=== PATIENT | female | born 1995 | race Caucasian/White ===

== ENCOUNTER 2016-09-24 16:04 | Inpatient (IN) | payer MEDICAID, OTHER ==
[2016-09-24 16:09] VITALS: BMI 25.4
--- NOTE | 2016-09-24 16:24 | ED PDOC ---
Arrival/HPI - General Chief Complaint: Psychiatric Evaluation Time Seen by Provider: 09/24/16 16:06 Historian: Patient, Other ([place] documentation) - History of Present Illness Narrative History of Present Illness (Text): 09/24/16 16:21 21yr old female with depression, presents with suicide attempt. pt transfer from [facility] for admission. denies any complaints at present time. Past Medical History - Provider Review Nursing Documentation Reviewed: Yes - Travel History Have you recently traveled outside [place] w/in the past 3 mons?: No - Cardiac Hx Cardiac Disorders: No - Pulmonary Hx Respiratory Disorders: No - Neurological Hx Neurological Disorder: No - HEENT Hx HEENT Disorder: No - Renal Hx Renal Disorder: No - Endocrine/Metabolic Hx Endocrine Disorders: No - Hematological/Oncological Hx Blood Disorders: No - Integumentary Hx Dermatological Disorder: No - Musculoskeletal/Rheumatological Hx Musculoskeletal Disorders: No - Gastrointestinal Hx Gastrointestinal Disorders: No - Genitourinary/Gynecological Hx Genitourinary Disorders: No - Psychiatric Hx Depression: Yes Hx Substance Use: No - Anesthesia Hx Anesthesia: No Family/Social History - Physician Review Nursing Documentation Reviewed: Yes Family/Social History: Unknown Family HX Smoking Status: Unknown If Ever Smoked Hx Alcohol Use: No Hx Substance Use: No Allergies/Home Meds Allergies/Adverse Reactions: Allergies No Known Allergies Allergy (Unverified 09/24/16 16:08) Home Medications: Home Meds Medication Instructions Recorded Confirmed No Known Home Med 09/24/16 09/24/16 Review of Systems - Review of Systems Constitutional: absent: Fatigue Respiratory: absent: SOB, Cough Cardiovascular: absent: Chest Pain, Palpitations Gastrointestinal: absent: Abdominal Pain, Diarrhea, Nausea, Vomiting Skin: absent: Rash, Pruritis Psychiatric: absent: Anxiety, Depression Physical Exam Vital Signs Reviewed: Yes Vital Signs Temp Pulse Resp BP Pulse Ox 09/24/16 16:08 98.2 F 84 16 130/77 100 Temperature: Afebrile Blood Pressure: Normal Pulse: Regular Respiratory Rate: Normal Appearance: Positive for: Well-Appearing, Non-Toxic, Comfortable Pain Distress: None Mental Status: Positive for: Alert and Oriented X 3 - Systems Exam Head: Present: Atraumatic Respiratory/Chest: Present: Clear to Auscultation Cardiovascular: Present: Regular Rate and Rhythm Abdomen: No: Tenderness, Distention, Rebound, Guarding Neurological: Present: GCS=15, Speech Normal Skin: Present: Warm, Dry, Normal Color. No: Rashes Psychiatric: Present: Alert Medical Decision Making ED Course and Treatment: 09/24/16 16:23 21yr old female presents for direct admission to Psych floor accepting physician; dr. mcqueen impression; depression admit to behavioral health floor. - Lab Interpretations I have reviewed the lab results: Yes Disposition/Present on Arrival - Present on Arrival Any Indicators Present on Arrival: No History of DVT/PE: No History of Uncontrolled Diabetes: No Urinary Catheter: No History of Decub. Ulcer: No History Surgical Site Infection Following: None - Disposition Have Diagnosis and Disposition been Completed?: Yes Diagnosis: Depression Disposition: HOSPITALIZED Disposition Time: 16:15 Patient Plan: Admission Condition: FAIR Referrals: PCP,NO [Primary Care Provider] - Follow up with primary
[2016-09-24] MEDS ORDERED: Magnesium Hydroxide Susp 30 ml UD PO PRN (17:30)
[2016-09-24] MEDS ORDERED: Alum-Mag Hydrox-Simethicone Susp (30 mL) PO PRN (17:30)
[2016-09-25 07:49] LABS: CHOLESTEROL 197 mg/dL (130-200); GLUCOSE,FASTING 88 mg/dL (65-110)
[2016-09-25 08:05] LABS: FREE T4 0.95 ng/dL (0.78-2.19)
[2016-09-25 08:19] LABS: THYROID STIMULATING HORMONE 2.17 mIU/mL (0.46-4.68)
--- NOTE | 2016-09-25 09:35 | PCM.PSYCH ---
Initial Psychiatric Evaluation - Initial Psychiatric Evaluation Type of Admission: Voluntary Legal Status: Capacity History of Present Illness and Precipitating Events: Patient is a single 21 year old domiciled Romansh-speaking female with history of depression, no prior psychiatric admissions, at least 2 prior suicide attempts, no current outpatient psychiatric management or medications who was transferred from [facility] after presenting there with her boyfriend s/p impulsive suicide attempt via OD of 20 Tylenol tablets. I reviewed [facility] records and met with patient in the day room. Utilized transfer car operator drier for the purpose of optimal communication during my assessment. Patient readily admits that she overdose on Tylenol tablets as a suicide attempt. Indicated her major stressor was learning that her mother was dating someone she didn't like. Patient denied any other stressors however review of records indicate that patient also got into a verbal altercation with her boyfriend immediately prior to the attempt. Apparently she asked her boyfriend for some Tylenol to help with a headache and then she impulsively ingested the bottle of pills in front of him before he could stop her. [facility] record indicate that boyfriend felt patient was trying to harm herself. And patient herself was not able to deny having suicidal thoughts when she was initially interviewed in their ER. Presently, patient is calm and cooperative and well-oriented to month, year, location and circumstances. She reports feeling depressed since her mother left [place] approximately a year and a half ago to return to [place]. Depression has been worsening and patient did not seek out any mental health treatment during this time. Patient endorses low mood and poor sleep. She denies anhedonia , crying spells, appetite changes or issues with motivation or focus. She indicates that overdose was impulsive and denies any further hopelessness or suicidal thoughts. Her affect is constricted and her thought process is coherent. Of note, patient was not immediately forthcoming about her prior suicide attempts until she was reminded by staff member who interviewed her the day prior. For this reason this provider feels that patient may be currently minimizing her symptoms. PSYCHIATRIC HISTORY Patient denies any prior inpatient psychiatric hospitalizations. Patient reports to prior suicide attempts. #1 occurred at age 16, patient jumped off the second story floor window after she learning about her parent's separation. Patient saw psychiatrist after this incident and was temporarily prescribed an anti-depressant. Patient eventually stop taking the anti- depressant and was only treated with a sleep aid. Patient cannot recall the names of her medications Patient [place] the [place] approximately two years ago. She has not been in any mental health treatment or prescribed any medications during this time. #2 Patient overdosed on medication approximately two months ago but did not tell anyone. SOCIAL HISTORY Born and raised in [place]. Patient came to the [facility] with her mother x2 years ago. Her mother returned to [place] three months later. Patient is single and she has no children. She resides with her uncle. Patient attends [place] language classes on the weekends. Patient used to work at a [employer] however she recently left this job. She denies any drug, alcohol or tobacco use. Current Medications: Active Medications Generic Name Dose Route Start Last Admin Trade Name Freq PRN Reason Stop Dose Admin Acetaminophen 650 mg 09/24/16 17:26 Tylenol 325mg Tab PO Q6H PRN Pain, moderate (4-7) Al Hydrox/Mg Hydrox/Simethicone 30 ml 09/24/16 17:30 Maalox Plus 30 Ml PO DAILY PRN Indigestion / Heartburn Lorazepam 0.5 mg 09/24/16 17:29 Ativan PO BID PRN Anxiety Protocol Magnesium Hydroxide 30 ml 09/24/16 17:30 Milk Of Magnesia PO DAILY PRN Constipation Sertraline HCl 25 mg 09/25/16 08:00 Zoloft PO DAILY LORENA Trazodone HCl 25 mg 09/24/16 17:28 Desyrel PO HS PRN Insomnia Past Psychiatric History - Past Psychiatric History Pertinent Medical Hx (Current Medical&Sleep Prob, Allergies): Allergies Allergy/AdvReac Type Severity Reaction Status Date / Time No Known Allergies Allergy Verified 09/24/16 17:35 No Known Home Med 09/24/16 DSM 5 DX - DSM 5 DSM 5 Diagnosis: 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 Anxiety disorder NOS Adjustment disorder with depression and anxiety Rule out contribution of cluster B traits - Recommended/Plan of Treatment Treatment Recommendations and Plan of Treatment: * grp, milieu and supportive tx * zoloft 25 mg po daily for depression * trazodone 25 mg po HS for depression and off-label for insomnia * ativan 0.5 mg po bid prn for anxiety * Awaiting medical f/u * Vitals reviewed and noted below: Selected Entries 09/24/16 09/25/16 16:08 06:52 Temperature 98.2 F 97.4 F L Pulse Rate 84 61 Respiratory 16 20 Rate Blood Pressure 130/77 99/58 L [facility] Labs noted below September 24, 2016 Urine HCG negative CBC within normal limits Ua within normal limits Urine drug screen: all negative Chemistry 14: all within normal limits Salicylate levels < 2.5 and Tylenol levels < 10 [facility] Labs noted below 09/25/16 09/25/16 07:15 07:15 Fasting Glucose 88 Triglycerides 152 Cholesterol 197 LDL Cholesterol Direct 120 HDL Cholesterol 50 Free T4 0.95 TSH 3rd Generation 2.17 - Smoking Cessation Smoking Cessation Initiated: No
--- NOTE | 2016-09-25 12:13 | CP.PCM.CON ---
<Heidi العراقي - Last Filed: 09/25/16 15:29> History of Present Illness - History of Present Illness History of Present Illness: 21 year old female with past medical history of depression is admitted to inpatient behavioral unit after attempted OD on Tylenol. Patient was transferred from [facility] yesterday. She was taken to that hospital after she ingested 20 tablets of Tylenol. Information is obtained by the documents from the other hospital. Patient was medically stable for transfer. Patient states that she had argument with her mother which really upset her. This is why she took the Tylenol. This has happened once before about 5 years ago. At that time, she sought outpatient behavioral health help. Patient denies having any CP, abd pain, N/v/d/C, urinary symptoms, extremity pain. PMHx: stated above Sx: appendectomy NKDA Social: denies tobacco, drug or ETOH use No home medications Past Patient History - Past Social History Smoking Status: Unknown If Ever Smoked Chewing Tobacco Use: No Cigar Use: No Alcohol: None Drugs: Denies - CARDIAC Hx Cardiac Disorders: No Hx Angina: No Hx Atrial Fibrillation: No Hx Cardia Arrhythmia: No Hx Circulatory Problems: No Hx Congestive Heart Failure: No Hx Heart Attack: No Hx Heart Murmur: No Hx Heart Transplant: No Hx Hypercholesterolemia: No Hx Hypertension: No Hx Hypotension: No Hx Internal Defibrillator: No Hx Mitral Valve Prolapse: No Hx Pacemaker: No Hx Peripheral Edema: No Hx Peripheral Vascular Disease: No - PULMONARY Hx Respiratory Disorders: No Hx Asthma: No Hx Bronchitis: No Hx Chronic Obstructive Pulmonary Disease (COPD): No Hx Emphysema: No Hx Lung Cancer: No Hx Pneumonia: No Hx Pulmonary Edema: No Hx Pulmonary Embolism: No Hx Respiratory Aspiration: No Hx Respiratory Tract Infection: No Hx Sleep Apnea: No Hx Tuberculosis: No - NEUROLOGICAL Hx Neurological Disorder: No Hx Alzheimer's Disease: No HX Cerebrovascular Accident: No Hx Dementia: No Hx Dizziness: No Hx Meningitis: No Hx Migraine: No Hx Multiple Sclerosis: No Hx Paralysis: No Hx Parkinson's Disease: No Hx Seizures: No Hx Syncope: No Hx Transient Ischemic Attacks (TIA): No Hx Vertigo: No - HEENT Hx HEENT Problems: No Hx Cataracts: No Hx Deafness: No Hx Difficulty Chewing: No Hx Epistaxis: No Hx Glaucoma: No Hx Macular Degeneration: No Hx Sinusitis: No - RENAL Hx Chronic Kidney Disease: No Hx Dialysis: No Hx Kidney Stones: No Hx Neurogenic Bladder: No Hx Pyelonephritis: No Hx Renal (Kidney) Cancer: No Hx Renal Failure: No - ENDOCRINE/METABOLIC Hx Endocrine Disorders: No Hx Adrenal Cancer: No Hx Diabetes Insipidus: No Hx Diabetes Mellitus Type 1: No Hx Diabetes Mellitus Type 2: No Hx Hyperthyroidism: No Hx Hypothyroidism: No Hx Systemic Lupus Erythematosus: No - HEMATOLOGICAL/ONCOLOGICAL Hx Blood Disorders: No Hx AIDS: No Hx Anemia: No Hx Blood Transfusions: No Hx Blood Transfusion Reaction: No Hx Bruising: No Hx Cancer: No Hx Chemotherapy: No Hx Cirrhosis: No Hx Gum Bleeding: No Hx Hemophilia: No Hx Hepatitis A: No Hx Hepatitis B: No Hx Hepatitis C: No Hx Human Immunodeficiency Virus (HIV): No Hx Leukemia: No Hx Metastesis: No Hx Shingles: No Hx Sickle Cell Disease: No Hx Unexplained Bleeding: No Hx von Willebrand's Disease: No - INTEGUMENTARY Hx Dermatological Problems: No Hx Basil Cell: No Hx Pelaez: No Hx Cellulitis: No Hx Eczema: No Hx Melanoma: No Hx Psoriasis: No Hx Squamous Cell: No - MUSCULOSKELETAL/RHEUMATOLOGICAL Hx Musculoskeletal Disorders: No Hx Arthritis: No Hx Back Pain: No Hx Degenerative Joint Disease: No Hx Falls: No Hx Fractures: No Hx Gout: No Hx Herniated Disk: No Hx Myasthenia Gravis: No Hx Osteoarthritis: No Hx Osteomyelitis: No Hx Osteoporosis: No Hx Rhabdomyolysis: No Hx Rheumatoid Arthritis: No Hx Spinal Stenosis: No Hx Unsteady Gait: No - GASTROINTESTINAL Hx Gastrointestinal Disorders: No Hx Bowel Surgery: No Hx Clostridium Difficile: No Hx Colitis: No Hx Colostomy: No Hx Constipation: No Hx Crohn's Disease: No Hx Diarrhea: No Hx Diverticulitis: No Hx Esophageal Varices: No Hx Fatty Liver Disease: No Hx Gall Bladder Disease: No Hx Gastritis: No Hx Gastroesophageal Reflux: No Hx Hemorrhoids: No Hx Ileostomy: No Hx Irritable Bowel: No Hx Liver Failure: No Hx Nausea: No Hx Pancreatitis: No HX Swallowing Problems: No Hx Ulcer: No Hx Vomiting: No - GENITOURINARY/GYNECOLOGICAL Hx Genitourinary Disorders: No Hx Bladder Cancer: No Hx Bladder Stone: No Hx Cervical Cancer: No Hx Hematuria: No Hx Incontinence: No Hx Ovarian Cancer: No Hx Postmenopausal Bleeding: No Hx Reproductive Disorders: No Hx Sexually Transmitted Disorders: No Hx Uterine Cancer: No Hx Urinary Tract Infection: No - PSYCHIATRIC Hx Psychophysiologic Disorder: No Hx Anxiety: Yes Hx Bipolar Disorder: No Hx Depression: Yes Hx Emotional Abuse: No Hx Physical Abuse: No Hx Schizophrenia: No Hx Sexual Abuse: No Hx Substance Use: No - SURGICAL HISTORY Hx Surgeries: Yes Hx Abdominal Aortic Aneurysm Repair: No Hx Amputation: No Hx Angiogram: No Hx Angioplasty: No Hx Appendectomy: Yes (5 years ago.) Hx Arteriovenous Shunt: No Hx Arthroscopy: No Hx Bile Duct Stent: No Hx Breast Biopsy: No Hx Cataract Extraction: No Hx Cardiac Catheterization: No Hx Carotid Endarterectomy: No Hx Section: No Hx Cholecystectomy: No Hx Coronary Artery Bypass Graft: No Hx Coronary Stent: No Hx Dilation and Curettage: No Hx Eye Surgery: No Hx Femoral-Popliteal Bypass Graft: No Hx Gastric Bypass Surgery: No Hx Herniorrhaphy: No Hx Hysterectomy: No Hx Joint Replacement: No Hx Kidney Transplant: No Hx Liver Transplant: No Hx Mastectomy: No Hx Musculoskeletal Surgery: No Hx Open Heart Surgery: No Hx Open Reduction Internal Fixation: No Hx Orthopedic Surgery: No Hx Parathyroidectomy: No Hx Penile Implant: No Hx Pulmonary Surgery: No Hx Splenectomy: No Hx Thyroidectomy: No Hx Tonsillectomy: No Hx Tubal Ligation: No Hx Valve Replacement: No Hx Vascular Surgery: No Hx Vascular Access Device: No - ANESTHESIA Hx Anesthesia: Yes Hx Anesthesia Reactions: No Hx Malignant Hyperthermia: No Has any member of the family had a problem w/ anesthesia?: No Meds Allergies/Adverse Reactions: Allergies Allergy/AdvReac Type Severity Reaction Status Date / Time No Known Allergies Allergy Verified 09/24/16 17:35 - Medications Medications: Current Medications Acetaminophen (Tylenol 325mg Tab) 650 mg PO Q6H PRN PRN Reason: Pain, moderate (4-7) Al Hydrox/Mg Hydrox/Simethicone (Maalox Plus 30 Ml) 30 ml PO DAILY PRN PRN Reason: Indigestion / Heartburn Lorazepam (Ativan) 0.5 mg PO BID PRN; Protocol PRN Reason: Anxiety Magnesium Hydroxide (Milk Of Magnesia) 30 ml PO DAILY PRN PRN Reason: Constipation Sertraline HCl (Zoloft) 25 mg PO DAILY LORENA Last Admin: 09/25/16 08:53 Dose: 25 mg Trazodone HCl (Desyrel) 25 mg PO HS PRN PRN Reason: Insomnia Physical Exam - Constitutional Appears: Non-toxic, No Acute Distress - Head Exam Head Exam: ATRAUMATIC - Eye Exam Eye Exam: EOMI - ENT Exam ENT Exam: Mucous Membranes Moist - Respiratory Exam Respiratory Exam: Clear to Auscultation Bilateral, NORMAL BREATHING PATTERN. absent: Accessory Muscle Use, Rales, Rhonchi, Wheezes, Respiratory Distress - Cardiovascular Exam Cardiovascular Exam: REGULAR RHYTHM, +S1, +S2. absent: Diastolic murmur, Gallop , Rubs, Systolic Murmur - GI/Abdominal Exam GI & Abdominal Exam: Normal Bowel Sounds, Soft. absent: Distended, Firm, Guarding, Rigid, Tenderness - Extremities Exam Extremities exam: Negative for: pedal edema, tenderness - Neurological Exam Neurological exam: Alert, Oriented x3 - Psychiatric Exam Psychiatric exam: Normal Affect, Normal Mood - Skin Skin Exam: Dry, Intact, Normal Color, Warm Results - Vital Signs Recent Vital Signs: Last Vital Signs Temp 97.4 F L 09/25/16 06:52 Pulse 61 09/25/16 06:52 Resp 20 09/25/16 06:52 BP 99/58 L 09/25/16 06:52 Pulse Ox 100 09/24/16 16:08 - Labs Result Diagrams: 09/25/16 13:20 09/25/16 13:20 Labs: Laboratory Results - last 24 hr 09/25/16 09/25/16 07:15 07:15 Fasting Glucose 88 Triglycerides 152 Cholesterol 197 LDL Cholesterol Direct 120 HDL Cholesterol 50 Free T4 0.95 TSH 3rd Generation 2.17 Assessment & Plan - Assessment and Plan (Free Text) Assessment: 21 year old female with past medical history of depression is admitted to inpatient behavioral unit for attempted suicide with ingestion of Tylenol. Tylenol overdose - Will check CBC, CMP, and tylenol level - will d/c tylenol Depression - Continue management per psych recommendations Will sign off. Please reconsult if necessary. Case is discussed with attending, Dr. Reyna - Date & Time Date: 09/25/16 Time: 12:14 <Kamila Reyna - Last Filed: 09/25/16 15:35> Meds - Medications Medications: Current Medications Al Hydrox/Mg Hydrox/Simethicone (Maalox Plus 30 Ml) 30 ml PO DAILY PRN PRN Reason: Indigestion / Heartburn Lorazepam (Ativan) 0.5 mg PO BID PRN; Protocol PRN Reason: Anxiety Magnesium Hydroxide (Milk Of Magnesia) 30 ml PO DAILY PRN PRN Reason: Constipation Sertraline HCl (Zoloft) 25 mg PO DAILY LORENA Last Admin: 09/25/16 08:53 Dose: 25 mg Trazodone HCl (Desyrel) 25 mg PO HS PRN PRN Reason: Insomnia Results - Vital Signs Recent Vital Signs: Last Vital Signs Temp 97.4 F L 09/25/16 06:52 Pulse 61 09/25/16 06:52 Resp 20 09/25/16 06:52 BP 99/58 L 09/25/16 06:52 Pulse Ox 100 09/24/16 16:08 - Labs Result Diagrams: 09/25/16 13:20 09/25/16 13:20 Labs: Laboratory Results - last 24 hr 09/25/16 09/25/16 09/25/16 07:15 07:15 13:20 WBC 8.3 RBC 4.20 Hgb 12.8 Hct 37.7 MCV 89.8 MCH 30.5 MCHC 34.0 RDW 13.6 Plt Count 326 MPV 10.0 Sodium Potassium Chloride Carbon Dioxide Anion Gap BUN Creatinine Est GFR ( Amer) Est GFR (Non-Af Amer) Random Glucose Fasting Glucose 88 Calcium Total Bilirubin AST ALT Alkaline Phosphatase Total Protein Albumin Globulin Albumin/Globulin Ratio Triglycerides 152 Cholesterol 197 LDL Cholesterol Direct 120 HDL Cholesterol 50 Free T4 0.95 TSH 3rd Generation 2.17 Acetaminophen 09/25/16 09/25/16 13:20 13:20 WBC RBC Hgb Hct MCV MCH MCHC RDW Plt Count MPV Sodium 141 Potassium 3.9 Chloride 108 H Carbon Dioxide 23 Anion Gap 14 BUN 14 Creatinine 0.6 Est GFR ( Amer) > 60 Est GFR (Non-Af Amer) > 60 Random Glucose 89 Fasting Glucose Calcium 9.7 Total Bilirubin 0.4 AST 26 ALT 23 Alkaline Phosphatase 75 Total Protein 8.0 Albumin 4.5 Globulin 3.5 Albumin/Globulin Ratio 1.3 Triglycerides Cholesterol LDL Cholesterol Direct HDL Cholesterol Free T4 TSH 3rd Generation Acetaminophen < 10.0 L Attending/Attestation - Attestation I have personally seen and examined this patient.: Yes I have fully participated in the care of the patient.: Yes I have reviewed all pertinent clinical information: Yes Notes (Text): 09/25/16 15:32 attending note; Patient seen and examined with resident in psychiatric floor. Translation by Canadian-speaking nurse taking care of the patient. Patient is a 21-year-old transferred from [facility] after ingesting Tylenol for suicidal attempt. Patient was seen in the ER. ER note reviewed. Poison control informed. Patient was medically cleared and sent to [place] psychiatric floor. Patient is clinically stable. Denies any abdominal pain, nausea, vomiting. tolerating diet well. Tylenol level was less than 10. LFTs normal. avoid Tylenol. no significant past medical history. Denied alcohol, drug abuse. Denied smoking history. Patient is medically stable. Please reconsult as needed. advised to follow-up with PMD upon discharge. Patient needs close psychiatric follow-up as outpatient.
[2016-09-25 13:26] LABS: HEMATOCRIT 37.7 % (36.0-48.0); MEAN CELL VOLUME 89.8 fL (80.0-105.0); MEAN CORPUSCULAR HEMOGLOBIN 30.5 pg (25.0-35.0); RED CELL DISTRIBUTION WIDTH 13.6 % (11.5-14.5); WHITE BLOOD COUNT 8.3 10^3/ul (4.5-11.0)
[2016-09-25 13:57] LABS: ALB/GLOB RATIO 1.3 (1.1-1.8); ALKALINE PHOSPHATASE 75 U/L (38-133); ALT/SGPT 23 U/L (7-56); AST/SGOT 26 U/L (15-39); BILIRUBIN,TOTAL 0.4 mg/dL (0.2-1.3); BLOOD UREA NITROGEN 14 mg/dL (7-21); CALCIUM 9.7 mg/dL (8.4-10.5); CARBON DIOXIDE 23 mmol/L (21-33); CHLORIDE 108 mmol/L (98-107); GFR AFRICAN-AMERICAN > 60; GLUCOSE,RANDOM 89 mg/dL (70-110); POTASSIUM 3.9 mmol/L (3.6-5.0); SODIUM 141 mmol/L (132-148)
--- NOTE | 2016-09-26 08:50 | PCM.PYCHPN ---
Psychiatric Progress Note - Psychiatric Progress Note Patient seen today, length of contact: 25 min Patient Chief Complaint: "better" Problems Identified/Issues Discussed: Patient is a single 21 year old domiciled Divehi-speaking female with history of depression, no prior psychiatric admissions, at least 2 prior suicide attempts, no current outpatient psychiatric management or medications who was transferred from [facility] after presenting there with her boyfriend s/p impulsive suicide attempt via OD of 20 Tylenol tablets. I reviewed [place] records and met with patient in the day room. Utilized blind aide for the purpose of optimal communication during my assessment. Patient readily admits that she overdose on Tylenol tablets as a suicide attempt. Indicated her major stressor was learning that her mother was dating someone she didn't like. Patient denied any other stressors however review of records indicate that patient also got into a verbal altercation with her boyfriend immediately prior to the attempt. Apparently she asked her boyfriend for some Tylenol to help with a headache and then she impulsively ingested the bottle of pills in front of him before he could stop her. [place] record indicate that boyfriend felt patient was trying to harm herself. And patient herself was not able to deny having suicidal thoughts when she was initially interviewed in their ER. Presently, patient is calm and cooperative and well-oriented to month, year, location and circumstances. She reports feeling depressed since her mother left [place] approximately a year and a half ago to return to [place]. Depression has been worsening and patient did not seek out any mental health treatment during this time. Patient endorses low mood and poor sleep. She denies anhedonia , crying spells, appetite changes or issues with motivation or focus. She indicates that overdose was impulsive and denies any further hopelessness or suicidal thoughts. Her affect is constricted and her thought process is coherent. Of note, patient was not immediately forthcoming about her prior suicide attempts until she was reminded by staff member who interviewed her the day prior. For this reason this provider feels that patient may be currently minimizing her symptoms. PSYCHIATRIC HISTORY Patient denies any prior inpatient psychiatric hospitalizations. Patient reports to prior suicide attempts. #1 occurred at age 16, patient jumped off the second story floor window after she learning about her parent's separation. Patient saw psychiatrist after this incident and was temporarily prescribed an anti-depressant. Patient eventually stop taking the anti- depressant and was only treated with a sleep aid. Patient cannot recall the names of her medications Patient [place] to the [place] approximately two years ago. She has not been in any mental health treatment or prescribed any medications during this time. #2 Patient overdosed on medication approximately two months ago but did not tell anyone. SOCIAL HISTORY Born and raised in [place]. Patient came to the [facility] with her mother x2 years ago. Her mother returned to [place] three months later. Patient is single and she has no children. She resides with her uncle. Patient attends Icelandic language classes on the weekends. Patient used to work at a [employer] however she recently left this job. She denies any drug, alcohol or tobacco use. ~~~~~~~~~~~~~~~~~~~~~~~~~~~~~~ I reviewed recent notes and met with patient bedside. Grooming is intact and she remains alert and oriented to location, circumstances, month and year. She is superficially cooperative and and pleasant during questioning. Affect remains constricted. Patient reports she is feeling better and continues to deny having any hopelessness, wishes are suicidal thoughts. Responses are relevant to questioning and overall her thought process has been coherent. There have been no indications of any disturbance in an organization in this respect. Delusions were not elicited. Thus far patient denies any side effects, discomfort or pain. There were no behavioral issues overnight and she continues to refuse to retract her 48 hour notice. Diagnostic Results: 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 Anxiety disorder NOS Adjustment disorder with depression and anxiety Rule out contribution of cluster B traits Medication Change: No Medical Record Reviewed: Yes (reports, labs, vitals, notes) Mental Status Examination - Cognitive Function Orientation: Person, Place, Situation Attention: WNL Concentration: WNL Association: Loose - Mood Mood: Depressed (better) - Affect Affect: Constricted - Speech Speech: Appropriate - Formal Thought Process Formal Thought Process: No Impairment - Suicidal Ideation Suicidal Ideation: No - Homicidal Ideation Homicidal Ideation: No Goal/Treatment Plan - Goal/Treatment Plan Progress Toward Problem(s) and Goals/Treatment Plan: * grp, milieu and supportive tx * Appreciate f/u by Dr. Reyna on 09/25/16~checking CBC, CMP, and tylenol level and signing off * zoloft 25 mg po daily for depression * trazodone 25 mg po HS for depression and off-label for insomnia * ativan 0.5 mg po bid prn for anxiety * Vitals reviewed and noted below: Selected Entries 09/26/16 08:08 Temperature 98.0 F Pulse Rate 62 Respiratory 20 Rate Blood Pressure 118/73 * Patient put in a 48 hour notice on 09/25/16 with insufficient time for treatment or observation on the unit. Will call for [facility] screen[facility]. [facility] Labs noted below September 24, 2016 Urine HCG negative CBC within normal limits Ua within normal limits Urine drug screen: all negative Chemistry 14: all within normal limits Salicylate levels < 2.5 and Tylenol levels < 10 [facility] Labs noted below 09/25/16 09/25/16 07:15 07:15 Fasting Glucose 88 Triglycerides 152 Cholesterol 197 LDL Cholesterol Direct 120 HDL Cholesterol 50 Free T4 0.95 TSH 3rd Generation 2.17 09/25/16 09/25/16 09/25/16 07:15 13:20 13:20 WBC 8.3 RBC 4.20 Hgb 12.8 Hct 37.7 MCV 89.8 MCH 30.5 MCHC 34.0 RDW 13.6 Plt Count 326 MPV 10.0 Sodium 141 Potassium 3.9 Chloride 108 H Carbon Dioxide 23 Anion Gap 14 BUN 14 Creatinine 0.6 Est GFR (Non-Af Amer) > 60 Random Glucose 89 Calcium 9.7 Total Bilirubin 0.4 AST 26 ALT 23 Alkaline Phosphatase 75 Total Protein 8.0 Albumin 4.5 Globulin 3.5 Albumin/Globulin Ratio 1.3 Acetaminophen RPR Nonreactive 09/25/16 13:20 WBC RBC Hgb Hct MCV MCH MCHC RDW Plt Count MPV Sodium Potassium Chloride Carbon Dioxide Anion Gap BUN Creatinine Est GFR (Non-Af Amer) Random Glucose Calcium Total Bilirubin AST ALT Alkaline Phosphatase Total Protein Albumin Globulin Albumin/Globulin Ratio Acetaminophen < 10.0 L RPR
[2016-09-27 03:45] VITALS: O2SAT 99
--- NOTE | 2016-09-27 15:41 | PCM.PYCHPN ---
Psychiatric Progress Note - Psychiatric Progress Note Patient seen today, length of contact: 30min Patient Chief Complaint: "I want to go home..." Problems Identified/Issues Discussed: Suicide/ homicide prevention, past psychiatric h/o, current psychiatric symptoms , medical problems, risk/benefits and alternatives of medications, medications compliance, coping strategies, substance abuse h/o, relapse prevention, importance of follow up with psychiatrist and therapist, discharge plan. Medical Problems: Hepatitis Diagnostic Results: 09/25/16 13:20 09/25/16 13:20 Lab Results 09/25/16 13:20: Acetaminophen < 10.0 L 09/25/16 13:20: Sodium 141, Potassium 3.9, Chloride 108 H, Carbon Dioxide 23, Anion Gap 14, BUN 14, Creatinine 0.6, Est GFR ( Amer) > 60, Est GFR (Non- Af Amer) > 60, Random Glucose 89, Calcium 9.7, Total Bilirubin 0.4, AST 26, ALT 23, Alkaline Phosphatase 75, Total Protein 8.0, Albumin 4.5, Globulin 3.5, Albumin/Globulin Ratio 1.3 09/25/16 13:20: WBC 8.3, RBC 4.20, Hgb 12.8, Hct 37.7, MCV 89.8, MCH 30.5, MCHC 34.0, RDW 13.6, Plt Count 326, MPV 10.0 09/25/16 07:15: RPR Nonreactive 09/25/16 07:15: Free T4 0.95, TSH 3rd Generation 2.17 09/25/16 07:15: Fasting Glucose 88, Triglycerides 152, Cholesterol 197, LDL Cholesterol Direct 120, HDL Cholesterol 50 Vital Signs Temp Pulse Resp BP Pulse Ox 09/27/16 08:00 97.2 F L 72 16 112/64 09/27/16 07:45 98.0 F 76 20 113/65 09/26/16 20:00 97.6 F 68 18 118/64 99 09/26/16 17:24 73 99/60 L 09/26/16 08:08 98.0 F 62 20 118/73 09/25/16 21:17 75 116/69 09/25/16 06:52 97.4 F L 61 20 99/58 L 09/24/16 16:08 98.2 F 84 16 130/77 100 DSM 5 Symptoms Update: as per note: Patient is a single 21 year old domiciled Kazakh-speaking female with history of depression, no prior psychiatric admissions, at least 2 prior suicide attempts, no current outpatient psychiatric management or medications who was transferred from [facility] after presenting there with her boyfriend s/p impulsive suicide attempt via OD of 20 Tylenol tablets. pt was seen at the tx team meeting, pt is Kazakh speaking and this write utilized translation service, [employer]. pt presented to be depressed, tearful, pt submitted 48hr notice, was [place] [facility], [place] accepted, at this moment pt is waiting for the bed to be available. pt was minimizing all of her symptoms, pt recently overdosed on medications about two months ago, did not tell anyone. as per staff pt is self isolating, not participating in unit activities, but no agitation, no aggression, pt denied psychotic symptoms. patient tolerates medications well, no side effects observed or reported, aims 0 , no EPS. Impression: Diagnostic Results: 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 Anxiety disorder NOS Adjustment disorder with depression and anxiety Rule out contribution of cluster B traits Medication Change: Yes (Zoloft increased) Medical Record Reviewed: Yes (reports, labs, vitals, notes) Consults ordered or reviewed: medical consultation appreciated Mental Status Examination - Cognitive Function Orientation: Person, Place, Situation Memory: Intact Attention: WNL Concentration: WNL Association: Loose Fund of Knowledge: Poor - Mood Mood: Depressed, Anxious - Affect Affect: Constricted - Speech Speech: Appropriate - Formal Thought Process Formal Thought Process: No Impairment - Suicidal Ideation Suicidal Ideation: No - Homicidal Ideation Homicidal Ideation: No Goal/Treatment Plan - Goal/Treatment Plan Need for Continued Stay: Remain at risks for inpatient hospitalization, Severe depression anxiety, Discharge may exacerbated symptoms, Severe functional impairment Progress Toward Problem(s) and Goals/Treatment Plan: milieu, structure, supportive therapy Zoloft will be increased to 50 mg daily for depression and anxiety Ativan as needed for anxiety ttrazodone 25 mg as needed for insomnia Medical consultation appreciated Family involvement Patient was accepted by [facility] for involuntary commitment patient is waiting for bed to be available Estimated Date of D/C: 10/01/16 (wwe'll monitor closely) - Smoking Cessation Smoking Cessation Initiated: No Reason for not providing: patient denied smoking
[2016-09-28 06:48] VITALS: RESP 18; TEMP 97.8
--- NOTE | 2016-09-28 15:16 | PCM.PYCHPN ---
Psychiatric Progress Note - Psychiatric Progress Note Patient seen today, length of contact: 30min Patient Chief Complaint: "I am fine..." Problems Identified/Issues Discussed: Suicide/ homicide prevention, past psychiatric h/o, current psychiatric symptoms , medical problems, risk/benefits and alternatives of medications, medications compliance, coping strategies, substance abuse h/o, relapse prevention, importance of follow up with psychiatrist and therapist, discharge plan. Medical Problems: Hepatitis Diagnostic Results: 09/25/16 13:20 09/25/16 13:20 Lab Results 09/25/16 13:20: Acetaminophen < 10.0 L 09/25/16 13:20: Sodium 141, Potassium 3.9, Chloride 108 H, Carbon Dioxide 23, Anion Gap 14, BUN 14, Creatinine 0.6, Est GFR ( Amer) > 60, Est GFR (Non- Af Amer) > 60, Random Glucose 89, Calcium 9.7, Total Bilirubin 0.4, AST 26, ALT 23, Alkaline Phosphatase 75, Total Protein 8.0, Albumin 4.5, Globulin 3.5, Albumin/Globulin Ratio 1.3 09/25/16 13:20: WBC 8.3, RBC 4.20, Hgb 12.8, Hct 37.7, MCV 89.8, MCH 30.5, MCHC 34.0, RDW 13.6, Plt Count 326, MPV 10.0 09/25/16 07:15: RPR Nonreactive 09/25/16 07:15: Free T4 0.95, TSH 3rd Generation 2.17 09/25/16 07:15: Fasting Glucose 88, Triglycerides 152, Cholesterol 197, LDL Cholesterol Direct 120, HDL Cholesterol 50 Vital Signs Temp Pulse Resp BP Pulse Ox 09/27/16 08:00 97.2 F L 72 16 112/64 09/27/16 07:45 98.0 F 76 20 113/65 09/26/16 20:00 97.6 F 68 18 118/64 99 09/26/16 17:24 73 99/60 L 09/26/16 08:08 98.0 F 62 20 118/73 09/25/16 21:17 75 116/69 09/25/16 06:52 97.4 F L 61 20 99/58 L 09/24/16 16:08 98.2 F 84 16 130/77 100 DSM 5 Symptoms Update: Patient is a single 21 year old domiciled Citizen Of [place]-speaking female with history of depression, no prior psychiatric admissions, at least 2 prior suicide attempts, no current outpatient psychiatric management or medications who was transferred from [facility] after presenting there with her boyfriend s/p impulsive suicide attempt via OD of 20 Tylenol tablets. pt was seen at the at hallway, tearful affect, pt seems to be minimizing her symptoms trying to smile, but cried instead. was [place] [facility] was accepted, at this moment pt is waiting for the bed to be available. as per staff pt is self isolating, not participating in unit activities, but no agitation, no aggression, pt denied psychotic symptoms. patient tolerates medications well, no side effects observed or reported, aims 0 , no EPS. Impression: Diagnostic Results: 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 Anxiety disorder NOS Adjustment disorder with depression and anxiety Rule out contribution of cluster B traits Medication Change: Yes (Zoloft increased yesterday) Medical Record Reviewed: Yes (reports, labs, vitals, notes) Consults ordered or reviewed: medical consultation appreciated Mental Status Examination - Cognitive Function Orientation: Person, Place, Situation Memory: Intact Attention: WNL Concentration: WNL Association: Loose Fund of Knowledge: Poor - Mood Mood: Depressed, Anxious - Affect Affect: Constricted - Speech Speech: Appropriate - Formal Thought Process Formal Thought Process: No Impairment - Suicidal Ideation Suicidal Ideation: No - Homicidal Ideation Homicidal Ideation: No Goal/Treatment Plan - Goal/Treatment Plan Need for Continued Stay: Remain at risks for inpatient hospitalization, Severe depression anxiety, Discharge may exacerbated symptoms, Severe functional impairment Progress Toward Problem(s) and Goals/Treatment Plan: milieu, structure, supportive therapy Zoloft will be increased to 50 mg daily for depression and anxiety Ativan as needed for anxiety ttrazodone 25 mg as needed for insomnia Medical consultation appreciated Family involvement Patient was accepted by [facility] for involuntary commitment patient is waiting for bed to be available Estimated Date of D/C: 10/01/16 (wwe'll monitor closely)
[2016-09-28 22:08] VITALS: BP 102/65; PULSE 73
--- NOTE | 2016-09-30 08:51 | PCM.PYCHDC ---
Mental Status Examination - Mental Status Examination Orientation: Person, Place, Situation, Time Memory: Intact Mood: Depressed, Anxious Affect: Constricted (and tearful) Speech: Appropriate Attention: Poor Concentration: Poor Association: WNL Fund of Knowledge: WNL Formal Thought Process: No Impairment Description of patient's judgement and insight: poor insight and judgment, but improving Psychotic Thoughts and Behaviors: denied v/a/t hallucinations, denied paranoid ideation Suicidal Ideation: No Current Homicidal Ideation?: No Plan: pt denied thoughts of harming self or others, but pt is secretive, holds everything for herself Discharge Summary - Discharge Note Reason for Hospitalization: s/p overdose on meds possible suicidal attempt depressive symptoms Psychiatric History (includes Medical, Family, Personal Hx): h/o depression/ anxiety, h/o suicidal attempts Laboratory Data: 09/25/16 13:20 09/25/16 13:20 Lab Results 09/25/16 13:20: Acetaminophen < 10.0 L 09/25/16 13:20: Sodium 141, Potassium 3.9, Chloride 108 H, Carbon Dioxide 23, Anion Gap 14, BUN 14, Creatinine 0.6, Est GFR ( Amer) > 60, Est GFR (Non- Af Amer) > 60, Random Glucose 89, Calcium 9.7, Total Bilirubin 0.4, AST 26, ALT 23, Alkaline Phosphatase 75, Total Protein 8.0, Albumin 4.5, Globulin 3.5, Albumin/Globulin Ratio 1.3 09/25/16 13:20: WBC 8.3, RBC 4.20, Hgb 12.8, Hct 37.7, MCV 89.8, MCH 30.5, MCHC 34.0, RDW 13.6, Plt Count 326, MPV 10.0 09/25/16 07:15: RPR Nonreactive 09/25/16 07:15: Free T4 0.95, TSH 3rd Generation 2.17 09/25/16 07:15: Fasting Glucose 88, Triglycerides 152, Cholesterol 197, LDL Cholesterol Direct 120, HDL Cholesterol 50 Vital Signs Temp Pulse Resp BP Pulse Ox 09/28/16 20:00 73 102/65 09/28/16 06:47 97.8 F 82 18 99/59 L 09/27/16 16:00 66 102/63 09/27/16 08:00 97.2 F L 72 16 112/64 09/27/16 07:45 98.0 F 76 20 113/65 09/26/16 20:00 97.6 F 68 18 118/64 99 09/26/16 17:24 73 99/60 L 09/26/16 08:08 98.0 F 62 20 118/73 09/25/16 21:17 75 116/69 09/25/16 06:52 97.4 F L 61 20 99/58 L 09/24/16 16:08 98.2 F 84 16 130/77 100 Consultations:: List each consultation separately and include: 1. Reason for request. 2. Findings. 3. Follow-up Consultations: medical consultation appreciated see notes for more detailed information Summary of Hospital Course include:: 1. Description of specific treatment plan utilized for patients during their course of treatmen. 2. Summarize the time- course for resolution of acute symptoms and/or regressed behaviors. 3. Describe issues identified and worked on during hospitalization. 4. Describe medication utilized. 5. Describe medical problems identified and treated. 6. Reassessment of suicide risk Summary of Hospital Course: Patient is a single 21 year old domiciled Cuban-speaking female with history of depression, no prior psychiatric admissions, at least 2 prior suicide attempts, no current outpatient psychiatric management or medications who was transferred from [facility] after presenting there with her boyfriend s/p impulsive suicide attempt via OD of 20 Tylenol tablets. [facility] [place] records reviewed, met with patient in the day room. pt presented to be depressed, hopeless, no remorse for overdose on meds, pt has poor insight into her illness. pt was started on zoloft pt submitted 48hr notice, was screened by [facility], was accepted for involuntary admission. pt was transferred to the [facility] on September 28, uneventfully. pt needs further evaluation and stabilization, observation and meds adjustment. - Diagnosis (1) MDD (major depressive disorder) Status: Acute - Final Diagnosis (DSM 5) Condition upon Discharge: [facility]IR Disposition: OTHER INSTITUTION Follow-up Treatment Plan: pt was transferred to [facility], for involuntary admission. - Smoking Cessation Smoking Cessation Medication prescribed: No Reason for not providing: pt does not smoke - Antipsychotic Medications Pt discharged on 2 or more routine antipsychotic medications: No
== END 2016-09-29 02:14 | DRG 885 ==
LOC: ED 16:04 → ERH 16:09 → PSYC 17:21
PROVIDERS: ADMIT Psychiatry & Neurology Psychiatry; ATTEND Psychiatry & Neurology Psychiatry
DX: F32.2 Major depressive disorder, single episode, severe without psychotic features (principal); K75.9 Inflammatory liver disease, unspecified; F43.23 Adjustment disorder with mixed anxiety and depressed mood; G47.00 Insomnia, unspecified; Z90.49 Acquired absence of other specified parts of digestive tract; Z91.5 Personal history of self-harm; R40.2412 Glasgow coma scale score 13-15, at arrival to emergency department; K59.00 Constipation, unspecified